=== PATIENT | male | born 1955 | race Caucasian/White ===

== ENCOUNTER 2017-02-22 12:07 | Observation (INO) | payer OTHER ==
--- NOTE | 2017-02-22 12:41 | CPEKG ---
Heart Rate: 44 RR Interval: 1364 P-R Interval: 188 QRSD Interval: 100 QT Interval: 440 QTC Interval: 377 P [place]: 53 QRS [place]: -6 T Wave [place]: 19 EKG Severity - OTHERWISE NORMAL ECG - EKG Impression: SINUS BRADYCARDIA Electronically Signed By: Madan Pozo 22-Feb-2017 13:42:35
--- NOTE | 2017-02-22 12:48 | EDPHY ---
H & P Stated Complaint: syncope at concert/fell inj l hip/hit head Time Seen by Provider: 02/22/17 12:47 HPI/ROS: CHIEF COMPLAINT: Syncope, mechanical fall, left hip pain HISTORY OF PRESENT ILLNESS: The patient presents to the ED after he experienced a syncopal episode at a running event earlier today. The patient fell landing on his left hip. He also struck his head sustaining a small abrasion over his right eye. The patient was supposedly noted to be hypotensive and bradycardic at the event. The patient's reports that he was vela and ashen during the event. The patient exercises with some frequency. He reportedly was not exercising very hard Clem[place] happened. He was brought to the emergency department for further evaluation. The patient denies any active chest pain or shortness of breath. He complains of moderate pain lateral to his left hip with movement. The patient reports he had a similar episode approximately 2 years ago. At that point time he was hospitalized and had a fairly unremarkable evaluation. He was on a beta-nura at that point time which was discontinued. The patient is currently taking lisinopril, hydrochlorothiazide and amlodipine. The patient denies any anticoagulant use. The patient denies any history of recent illness or melena. REVIEW OF SYSTEMS: A comprehensive 10 point review of systems is otherwise negative aside from elements mentioned in the history of present illness. Source: Patient - Personal History Current Tetanus/Diphtheria Vaccine: No - Medical/Surgical History Hx Asthma: No Hx Chronic Respiratory Disease: No Hx Diabetes: No Hx Cardiac Disease: No Hx Renal Disease: No Hx Cirrhosis: No Hx Alcoholism: No Hx HIV/AIDS: No Hx Splenectomy or Spleen Trauma: No Other PMH: HTN,tinnitus, tonsillectomy, - Social History Smoking Status: Never smoked - Physical Exam Exam: General Appearance: Alert, no distress Head: Normocephalic, small abrasion over right eyebrow, no significant hematoma Neck: No midline tenderness to palpation Eyes: Pupils equal and round no pallor or injection ENT, Mouth: Mucous membranes moist Respiratory: There are no retractions, lungs are clear to auscultation Cardiovascular: Regular rate and rhythm Gastrointestinal: Abdomen is soft and nontender, no masses, bowel sounds normal Neurological: A&O, normal motor function, normal sensory exam, normal cranial nerves Skin: Warm and dry, no rashes Musculoskeletal: Tenderness to palpation adjacent to left hip and down lateral aspect of left thigh Extremities: symmetrical, full range of motion Constitutional: Initial Vital Signs Temperature (C) 36.7 C 02/22/17 12:17 Heart Rate 64 02/22/17 12:17 Respiratory Rate 20 02/22/17 12:17 Blood Pressure 125/79 H 02/22/17 12:17 O2 Sat (%) 98 02/22/17 12:17 O2 Delivery Mode Room Air Allergies/Adverse Reactions: No Known Allergies Allergy (Verified 02/22/17 12:17) Home Medications: Medication Instructions Recorded Aspirin EC [Aspirin EC 81 mg (*)] 81 mg PO DAILY #0 tab 04/16/15 Atorvastatin Calcium [Lipitor 40 40 mg PO DAILY #30 tab 04/16/15 mg (*)] Lisinopril/Hctz 10/12.5 mg 2 ea PO DAILY #0 tab 04/16/15 [Zestoretic/Prinzide 10/12.5MG (*)] amLODIPine BESYLATE [Norvasc 5 mg 5 mg PO DAILY #30 tab 04/16/15 (*)] Medical Decision Making - Diagnostics EKG Interpretation: EKG: Complete interpretation has been separately recorded in the [facility] archive. Summary impression: Sinus bradycardia Imaging Results: Left hip x-ray: Small avulsion noted off the ischial rami. No evidence of hip or other pelvic fracture present. Images reviewed by myself and discussed with radiologist Dr. Ramesh. ED Course/Re-evaluation: The patient was placed on a telecom sales consultant. He did have transient bradycardia upon arrival which improved. His heart rate has maintained in the 70s. His blood pressure is currently 148/84. The patient does have some left hip pain. There is no evidence of an obvious fracture noted on his x-ray. The patient was monitored in the emergency department for 2 hours without any further arrhythmia. He did receive 2 L of normal saline. I reviewed the patient's past medical records. The patient had a negative CTA of the head and neck less than 2 years ago. The patient had a fairly extensive workup for dizziness and hypertension at that time. He is currently not on a beta-nura. I re-evaluated the patient at 2:30 p.m.. He is in no acute distress. The patient presents to the ED after an episode of syncope which resulted in fairly significant hypotension and according to his fairly impressive pallor, central cyanosis and diaphoresis. I do feel the patient should be admitted to the hospital for observation this evening. His initial troponin is normal. The patient has no evidence of ischemia on his EKG. Consultation is made with the hospitalist service for admission. 3:00 p.m.: I am informed by Radiology that they do see a small avulsion fracture off of his inferior ramus which certainly could be an explanation of the patient's pain. I did page Orthopedics and will request in-patient orthopedic consultation. Differential Diagnosis: Differential diagnosis considered includes vasovagal episode, dehydration, metabolic abnormality, arrhythmia, hip fracture, pelvic fracture - Data Points Laboratory Results: Laboratory Results 02/22/17 12:46 02/22/17 12:46 02/22/17 02/22/17 12:46 12:46 WBC 11.69 10^3/uL H 10^3/uL (3.80-9.50) RBC 4.56 10^6/uL 10^6/uL (4.40-6.38) Hgb 14.6 g/dL g/dL (13.7-17.5) Hct 42.3 % % (40.0-51.0) MCV 92.8 fL fL (81.5-99.8) MCH 32.0 pg pg (27.9-34.1) MCHC 34.5 g/dL g/dL (32.4-36.7) RDW 12.9 % % (11.5-15.2) Plt Count 203 10^3/uL 10^3/uL (150-400) MPV 11.8 fL H fL (8.7-11.7) Neut % (Auto) 85.8 % H % (39.3-74.2) Lymph % (Auto) 7.4 % L % (15.0-45.0) [place] % (Auto) 5.0 % % (4.5-13.0) Eos % (Auto) 1.0 % % (0.6-7.6) Baso % (Auto) 0.3 % % (0.3-1.7) Nucleat RBC Rel Count 0.0 % % (0.0-0.2) Absolute Neuts (auto) 10.03 10^3/uL H 10^3/uL (1.70-6.50) Absolute Lymphs (auto) 0.86 10^3/uL L 10^3/uL (1.00-3.00) Absolute Monos (auto) 0.59 10^3/uL 10^3/uL (0.30-0.80) Absolute Eos (auto) 0.12 10^3/uL 10^3/uL (0.03-0.40) Absolute Basos (auto) 0.03 10^3/uL 10^3/uL (0.02-0.10) Absolute Nucleated RBC 0.00 10^3/uL 10^3/uL (0-0.01) Immature Gran % 0.5 % % (0.0-1.1) Immature Gran # 0.06 10^3/uL 10^3/uL (0.00-0.10) Sodium 135 mEq/L mEq/L (134-144) Potassium 4.1 mEq/L mEq/L (3.5-5.2) Chloride 102 mEq/L mEq/L (97-110) Carbon Dioxide 22 mEq/l mEq/l (22-31) Anion Gap 11 mEq/L mEq/L (8-16) BUN 19 mg/dL mg/dL (7-23) Creatinine 1.0 mg/dL mg/dL (0.7-1.3) Estimated GFR > 60 Glucose 102 mg/dL H mg/dL (70-100) Calcium 9.6 mg/dL mg/dL (8.5-10.4) Troponin I < 0.012 ng/mL ng/mL (0-0.034) Medications Given: Discontinued Medications Sodium Chloride (Ns) 1,000 mls @ 0 mls/hr IV EDNOW ONE; Wide Open PRN Reason: Protocol Stop: 02/22/17 13:01 Last Admin: 02/22/17 13:16 Dose: 1,000 mls Ibuprofen (Motrin) 600 mg PO EDNOW ONE Stop: 02/22/17 13:09 Last Admin: 02/22/17 13:15 Dose: 600 mg Departure - Departure Disposition: [facility] Inpatient Acute Clinical Impression: Syncope, Bradycardia, Left hamstring injury Condition: Good Referrals: Iraj Hughes MD [Primary Care Provider] - As per Instructions
[2017-02-22] MEDS ORDERED: NS 1,000 ML IV ONE (13:00)
[2017-02-22] MEDS ORDERED: IBUPROFEN 600 MG TAB PO ONE (13:08)
[2017-02-22 13:24] LABS: % IMMATURE GRANULYOCYTES 0.5 % (0.0-1.1); ABSOLUTE IMMATURE GRANULOCYTES 0.06 10^3/uL (0.00-0.10); ADD DIFF? NO; ADD MORPH? NO; ADD SCAN? NO; ATYPICAL LYMPHOCYTE FLAG 0 (0-99); FRAGMENT RBC FLAG 0 (0-99); HEMATOCRIT 42.3 % (40.0-51.0); HEMOGLOBIN 14.6 g/dL (13.7-17.5); LEFT SHIFT FLG 0 (0-99); LIPEMIA HEMOLYSIS FLAG 90 (0-99); MEAN CELL HEMOGLOBIN CONCENTR. 34.5 g/dL (32.4-36.7); MEAN CELL VOLUME 92.8 fL (81.5-99.8); MEAN PLATELET VOLUME 11.8 fL (8.7-11.7); PLATELET CLUMPS FLAG 0 (0-99); PLATELET COUNT 203 10^3/uL (150-400); RED BLOOD CELL COUNT 4.56 10^6/uL (4.40-6.38); RED CELL DISTRIBUTION WIDTH 12.9 % (11.5-15.2)
[2017-02-22 13:31] LABS: ANION GAP 11 mEq/L (8-16); CALCIUM 9.6 mg/dL (8.5-10.4); CARBON DIOXIDE 22 mEq/l (22-31); CHLORIDE 102 mEq/L (97-110); GLOMERULAR FILTRATION RATE > 60; GLUCOSE 102 mg/dL (70-100); POTASSIUM 4.1 mEq/L (3.5-5.2); SODIUM 135 mEq/L (134-144)
[2017-02-22 13:42] LABS: TROPONIN I < 0.012 ng/mL (0-0.034)
[2017-02-22] MEDS ORDERED: PROMETHAZINE HCL 25 MG/ML INJ IVP PRN (16:03)
[2017-02-22] MEDS ORDERED: ONDANSETRON DISINTEGRATING 4 MG TAB PO PRN (16:03)
[2017-02-22] MEDS ORDERED: ONDANSETRON 4 MG/2 ML VIAL IVP PRN (16:03)
[2017-02-22] MEDS ORDERED: ACETAMINOPHEN 325 MG TAB PO PRN (16:03)
[2017-02-22] MEDS ORDERED: LORazepam 0.5 MG TAB PO PRN (16:03)
[2017-02-22] MEDS ORDERED: ZOLPIDEM TARTRATE 5 MG TAB PO PRN (16:03)
[2017-02-22] MEDS: oxyCODONE IR 5 MG TAB PO PRN (19:26)
--- NOTE | 2017-02-22 20:25 | GHP ---
[f rep st] HISTORY AND PHYSICAL DATE OF ADMISSION: 02/22/2017 CHIEF COMPLAINT: Syncope. HISTORY: This is a 61-year-old man with a past medical history that includes hypertension and prior syncopal events, who presents after several syncopal versus near syncopal episodes earlier in the d ay today. The patient notes that he was at a music event where he was helping to set up tarps. In order to do that, they were essentially running with the tarps across the field. He notes that 10 s econds into running, he experienced loss of consciousness, was out for about 10-15 seconds. He stat es there was really no prodrome of symptoms that he was about to faint and that prior to this happen ing, he had felt well. It was not a particularly hot day and it was early in the day so he had not had much to drink. He then got up to go to the medical tent and had 2 more episodes of near syncope and ultimately had to be taken by stretcher to the ambulance. It was noted in the medical tent mitchell t he had a heart rate in the 40s and his blood pressure was in the 90/60 range. He notes that he avitia s had syncopal episodes in the past, one of which he was admitted for and was thought to be secondar y to over medication for his blood pressure. At that hospitalization, he underwent a significant wo rkup including head and neck CTA, brain MRI and echocardiogram, and also was seen by Neurology. The se notes describe these episodes as dizzy episodes, though he describes them as syncopal events. He notes he had one other syncopal event when he was up in [place], but at that time, he was dehydrated. He also was complaining of significant pain in his left hamstring and notes that he fell. He feels as if he tore something back there and has been unable to fully extend his leg since the fall. The patient's notes that shortly after his syncopal event, he was ashen appearing. He was diaphor etic and his lips appeared purple. PAST MEDICAL HISTORY: 1. Hypertension. 2. Prior syncopal versus near syncopal episodes. FAMILY HISTORY: Father of a stroke in his 80s. He has 2 grandparents who of strokes as w ell in their 60s. SOCIAL HISTORY: Patient is here with his girlfriend. He describes himself as very active, [place] He is a nonsmoker and only drinks occasionally. He has 4 children . REVIEW OF SYSTEMS: A 10-point review of systems obtained and negative, except as per HPI. PHYSICAL EXAMINATION: VITAL SIGNS: BP 157/101, heart rate 75, respiratory rate 21, O2 sats 92% on room air. Temperature is 36.7. GENERAL APPEARANCE: This is a well-developed, well-nourished man. He is awake and alert. He is in no acute distress. EYES: Anicteric. HENT: Oropharynx clear. C ARDIOVASCULAR: Regular rate and rhythm. No murmurs, rubs, or gallops. PULMONARY: CTA bilaterally . Normal work of breathing. ABDOMEN: Soft, nontender. Positive bowel sounds. EXTREMITIES: No c lubbing, cyanosis, or edema. SKIN: Warm, dry well perfused. EXTREMITIES: The patient has signifi cant tenderness near the insertion site of his left hamstring with inability to fully extend his leg . SKIN: Warm, dry, well perfused. NEURO/PSYCH: Oriented appropriate, pleasant. CLINICAL DATA: EKG personally reviewed and interpreted shows sinus bradycardia, rate of 44. Otherw ise intervals appear normal. No ST-T changes. Hip x-ray, personally reviewed and interpreted showing findings suspicious for an avulsion-type frac ture along the lateral margin of the ischium. Lower extremity MRI shows hamstring avulsion with possible associated injury of the sciatic nerve. ASSESSMENT/PLAN: 1. This is a 61-year-old man with a past medical history of hypertension, presenting status post sy ncopal event with associated hamstring avulsion injury. 2. Syncope, most likely vasovagal episode; however, there are some concerning features including th at he reports no prodrome. He will be monitored on telemetry with serial EKGs and troponins. He wa s significantly bradycardic from the time of the episode until his arrival here in the ER but since has normalized. There were no noted signs of heart block, however. We will obtain an echocardiogra m. Will ask Cardiology to consult in the morning. Could be related to volume depletion and being o n a diuretic; however, his blood pressure has been relatively normal since arrival. 3. Hamstring avulsion injury. I will consult Orthopedics for further assistance and management. 4. Hypertension. Will hold his lisinopril/HCTZ for now and monitor his blood pressure. He does avitia ve concerns that perhaps his blood pressure has been intermittently low at home as well. I will con tinue his amlodipine. 5. Disposition: Observation status. Suspect he will need less than 48 hours stay for evaluation a nd management of above. 6. Patient is new to my care. Old records reviewed, summarized as per HPI and past medical history . Care plan reviewed with ER physician, including plans for workup of syncope. Further history obt ained from patient's girlfriend present at bedside. /[id number]/MODL
[2017-02-23] MEDS: oxyCODONE IR 5 MG TAB PO PRN (03:31)
[2017-02-23 05:57] VITALS: RESP 16
--- NOTE | 2017-02-23 08:16 | CPEKG ---
Heart Rate: 59 RR Interval: 1017 P-R Interval: 208 QRSD Interval: 98 QT Interval: 436 QTC Interval: 432 P [place]: 46 QRS [place]: -25 T Wave [place]: 6 EKG Severity - ABNORMAL ECG - EKG Impression: SINUS RHYTHM EKG Impression: BORDERLINE LEFT AXIS DEVIATION EKG Impression: CONSIDER ANTEROSEPTAL INFARCT Electronically Signed By: Jerry Redding 23-Feb-2017 10:21:25
[2017-02-23] MEDS ORDERED: ATORVASTATIN CALCIUM 40 MG TAB PO SCH (09:00)
[2017-02-23] MEDS ORDERED: amLODIPine BESYLATE 5 MG TAB PO SCH (09:00)
[2017-02-23] MEDS ORDERED: ASPIRIN EC 81 MG TAB PO SCH (09:00)
[2017-02-23 10:34] LABS: % IMMATURE GRANULYOCYTES 0.3 % (0.0-1.1); ABSOLUTE IMMATURE GRANULOCYTES 0.02 10^3/uL (0.00-0.10); ADD DIFF? NO; ADD MORPH? NO; ADD SCAN? NO; ATYPICAL LYMPHOCYTE FLAG 0 (0-99); FRAGMENT RBC FLAG 0 (0-99); HEMATOCRIT 39.8 % (40.0-51.0); HEMOGLOBIN 13.9 g/dL (13.7-17.5); LEFT SHIFT FLG 0 (0-99); LIPEMIA HEMOLYSIS FLAG 90 (0-99); MEAN CELL HEMOGLOBIN 32.2 pg (27.9-34.1); MEAN CELL HEMOGLOBIN CONCENTR. 34.9 g/dL (32.4-36.7); MEAN CELL VOLUME 92.1 fL (81.5-99.8); MEAN PLATELET VOLUME 11.7 fL (8.7-11.7); PLATELET CLUMPS FLAG 10 (0-99); PLATELET COUNT 198 10^3/uL (150-400); RED BLOOD CELL COUNT 4.32 10^6/uL (4.40-6.38)
[2017-02-23 10:43] LABS: ANION GAP 11 mEq/L (8-16); CALCIUM 8.8 mg/dL (8.5-10.4); CARBON DIOXIDE 22 mEq/l (22-31); CHLORIDE 107 mEq/L (97-110); CREATININE 0.8 mg/dL (0.7-1.3); GLOMERULAR FILTRATION RATE > 60; GLUCOSE 102 mg/dL (70-100); POTASSIUM 3.8 mEq/L (3.5-5.2); SODIUM 140 mEq/L (134-144)
[2017-02-23 11:33] VITALS: BP 119/71; PULSE 66; TEMP 97.3; O2SAT 91
--- NOTE | 2017-02-23 12:18 | GCON ---
[f rep st] CONSULTATION CARDIOLOGY CONSULTATION DATE OF CONSULTATION: 02/23/2017 INDICATION FOR CONSULTATION: Syncope. HISTORY OF PRESENT ILLNESS: The patient is a pleasant 61-year-old gentleman with a past medical history of hypertension and a prior history of syncope while skiing in [place] in September of 2014 coupled with an episode of profound dizziness in March of 2015 who presented to [facility] last evening after a syncopal episode. He was at a concert in [place] last evening and was sprinting across a field to obtain close-up seats for the concert when while in the middle of the sprint he suddenly lost consciousness without prodrome. His girlfriend came upon him and found him down. She described him as being pale and diaphoretic with blue lips and some blood on his face secondary to his traumatic fall. EMS arrived on scene and attempted to pick him up, at which point he collapsed and became syncopal once again. A third attempt to get him up resulted in, again, his inability to stand secondary to marked near syncope. He was seen at the medical tent at the concert where it was reported that he had a blood pressure of 90/60, and an initial heart rate in the medical tent in the 40s. Upon his arrival in the ER, he was noted to have transient bradycardia on arrival but has maintained a heart rate in the 70s and blood pressure of 148/ 84. The patient's symptoms have gradually improved. He states he did not feel well for several hours after his syncopal event. His fall has resulted in trauma with evidence of a small avulsion fracture off his left inferior ramus. The patient was admitted to the hospitalist service to [address] [place] [address]. On telemetry, he was found to have paroxysmal atrial fibrillation that occurred last evening at 5:14 and again occurred this morning at 7:26. He states he could appreciate fluttering in his chest at the time of these separate events. He has no previous history of atrial fibrillation. He has been cared for by Dr. Elia Mendez at [facility], primarily for hypertension. In reviewing his records, in March of 2015 he was admitted for a 2-3 day history of chronic dizziness. He underwent extensive workup including CTA of the head and neck demonstrating nonobstructive calcified plaque in his left carotid bulb. MRI of his brain demonstrated a small chronic old lacunar infarct. Currently, at the time of my exam, he is resting comfortably without complaint. He denies complaints of chest pain, chest pressure, shortness of breath or dyspnea. He has no complaints of PND, orthopnea, or lower extremity edema. He denies any history of exertional intolerance, or fatigue. He describes himself as physically active and mountain bikes 30 miles a week without cardiac complaint. At the time of my exam, his blood pressure is 92/73 with a heart rate of 58, in sinus rhythm. PAST MEDICAL HISTORY: 1. Hypertension. 2. History of syncope. 3. Nonobstructive left carotid bulb plaque on CTA in March 2015. MEDICATIONS ON ADMISSION: Include amlodipine 5 mg daily, lisinopril/ hydrochlorothiazide 20/25 mg once daily, atorvastatin 40 mg daily, and aspirin 81 mg daily. ALLERGIES: No allergies to medications. SOCIAL HISTORY: He is a nonsmoker. He rarely drinks alcohol. He exercises regularly. He has 4 children. FAMILY HISTORY: His father from a CVA in his 80s. His grandparents of strokes as well in their 60s. PHYSICAL EXAMINATION: VITAL SIGNS: Blood pressure 92/73, heart rate 58 in sinus rhythm, oxygen saturation 95% on room air, temperature 36.7. GENERAL: He is awake, alert, oriented, appropriate. No apparent distress. NECK: There is no evidence of JVP or carotid bruits. LUNGS: Clear to auscultation bilaterally. CARDIAC: S1, S2. Regular rate and rhythm. No murmurs, rubs, or gallops. PMI is not displaced. ABDOMEN: Soft, nontender, nondistended. There is no pulsatile mass or abdominal bruit. EXTREMITIES: There is no evidence of cyanosis, clubbing or edema. DATA: White blood cell count 6.35, hemoglobin of 13.9, hematocrit 39.8, platelet count 198. Sodium 140, potassium 3.8, chloride 107, bicarb 22, BUN 12 , creatinine 0.8, glucose 102. AST 28, ALT 40. Total cholesterol 134, LDL 54, triglycerides 66, HDL 67. TSH 1.2. Troponin less than 0.012 x 2. Telemetry: Sinus rhythm to sinus bradycardia. Two runs of paroxysmal atrial fibrillation that patient could appreciate with symptoms of palpitations. IMPRESSION: 1. Non prodromal syncope. 2. New onset paroxysmal atrial fibrillation. The patient is a pleasant 61-year-old gentleman with an episode of non prodromal syncope with a history of a syncopal event approximately 2-1/2 years ago that was preceded with symptoms of dizziness and lightheadedness. His story is consistent with vasovagal syncope with being found bradycardic and hypotensive and unable to stand without having further syncope during his initial event. He has been found to have runs of paroxysmal atrial fibrillation. In the setting of risk factors for heart disease including evidence of carotid disease and hypertension, would recommend workup including complete 2D echocardiogram and pharmacologic nuclear stress test. As an outpatient, I think he will require evaluation for obstructive sleep apnea based on his girlfriend's report that he does snore. He is in need of orthopedic surgery secondary to his left avulsion fracture. Would recommend his cardiac workup with echo and nuclear stress test be completed before undergoing orthopedic surgery. PLAN: 1. Continue outpatient medications. 2. Complete 2D echocardiogram. 3. Pharmacologic nuclear stress test. 4. We will continue to follow along with the patient's care. 5. As an outpatient, will require a formal sleep study and will consider implantable loop recorder. 45 minutes spent coordinating patient care. /[id number]/MODL MTDD
--- NOTE | 2017-02-23 19:26 | PDDCSUM ---
Discharge Summary Discharge Summary: DISCHARGE SUMMARY FOLLOW-UP ITEMS: Outpatient echo and stress test this Saturday, orthopedic consultation to follow DATE OF ADMISSION: 02/22/2017 DATE OF DISCHARGE: 02/23/2017 DISCHARGE DIAGNOSES: 1. Acute syncope 2. Paroxysmal atrial fibrillation 3. Left hamstring avulsion CONSULTATIONS: Cardiology, Orthopedics PROCEDURES / IMAGING: MRI of pelvis demonstrating left hamstring avulsion with approximately 8 mm tear CHIEF COMPLAINT: Acute syncope SUBJECTIVE: Patient is able to ambulate with touchdown weight-bearing at discharge PHYSICAL EXAM ON DISCHARGE: Systolic blood pressure 120, heart rate 60, afebrile overnight, satting well on room air, left lower extremity in the 45 degree angle flexed position, painful with extension, painful with 90 degree flexion, painful with internal and external rotation, less painful with abduction and abduction, tender to palpation in the insertion point near the ischium LABS ON DISCHARGE: Troponin negative, TSH normal HOSPITAL COURSE BY PROBLEM: 1. Acute syncope. Patient presented with multiple syncopal episodes without initial prodrome, which may be secondary to vasovagal events given his reported hypotension and bradycardia at the scene. That being said, the patient should have an echocardiogram performed given his onset of atrial fibrillation he should also have a stress test. He was seen in consultation by Cardiology they made these recommendations. Given that the patient has consumed caffeine on the morning of this discharge, is recommended that he have these tests performed in the outpatient setting. He did not experience any syncopal episodes during his hospitalization. 2. Paroxysmal atrial fibrillation. The patient experienced a short, self- limited run of atrial fibrillation on telemetry monitoring. It is unclear whether there is any relevance to this and whether it is related in any way to his syncopal episode. Appears to be asymptomatic when it occurred. Dr. Devin Pederson has recommended that the patient continue his aspirin 81 mg daily and at the present time we will avoid yumiko blocking agents given that his resting heart rate is between 50 and 70 and his atrial fibrillation was self-limited. As noted above, the patient will have an outpatient echo and stress test this week. 3. Hamstring avulsion. Acute, 8 mm tear left hamstring seen in consultation by Dr. Coreas, he has recommended conservative, nonsurgical management and protection of the affected area as either nonweightbearing or touchdown weight- bearing at most. He will be discharged with walker and crutches. Dr. Coreas has recommended that the patient follow up with [facility], either Dr. Bhakta or Dr. Carrillo for further instructions. DISCHARGE MEDICATIONS: Please see official discharge medication reconciliation sheet in chart oxycodone immediate release as needed, Karel S scheduled while on opiates, aspirin 81 mg daily DISCHARGE INSTRUCTIONS: Please follow up at [facility] for cardiac testing this Saturday, follow up with Orthopedics thereafter.
--- NOTE | 2017-02-24 07:55 | PDCONSULT ---
Emergency Response Technician Note: Orthopaedic Consult Note DOS: 02/23/2017 CC: Syncope and Left hip pain HPI: 61y M p/w Left posterior hip and thigh pain after syncope event at [employer] while running with a tarp to get his listening space at the concert. He denies thigh pain prior to the event. We were consulted by Dr. Chavarria regarding a hamstring avulsion found on imaging. He enjoys skiing and biking as his main sports and is concerned about returning to them after this injury. He has a prior history of syncopal events without a clear diagnosis. Cardiology has seen the patient and recommended some additional outpatient studies to assess potential afib or other etiologies. PMHx: prior syncopal episodes, HTN Meds: includes HTN meds All: NKDA FamHx: CVA SocHx: 4 children. Was planning trip to [place] in a couple weeks. ROS: 10 system review all within normal baseline for patient except for CV and MSK per HPI, and facial lacs from fall. PE: AxOx3, laying in bed with pillow under Left knee. dried small cut over right eye RLE: no pain with ROM. NVI LLE: Pain in lateral posterior thigh and buttock with hip flexion and internal rotation, hip flexion + knee extension. TTP at ischium and along biceps femoris. Minimal to no TTP along medial hamstrings all the way to insertion. SILT S/S/SP/DP/T. 2+ DP. 5/5 TA/GS. 4+/5 quad. 4/5 hamstring Imaging: Pelvis and hip films visually reviewed demonstrating possible avulsion fragment along lateral ischium. MRI shows that hamstrings partially avulsed, perhaps 50-75%, but inferior attachments Avulsion displacement ~8-10mm. A/P: 61y M h/o syncopal episodes of unclear etiology p/w new syncopal episode and Left hamstring partial avulsion - We discussed that the likely sequence of events was that he had a syncopal episode and then fell in an awkward position, avulsing his hamstring. He had no prodrome of hamstring issues and appears to be generally healthy from a musculoskeletal perspective, making spontaneous hamstring avulsion with straight ahead running seem less likely prior to the syncope. Of course, this is impossible to know 100% without witnesses. - He should be nonweightbearing or touchdown weightbearing to the Right lower extremity for now. I anticipate a course of ~4 weeks protected weightbearing and nonoperative treatment (as most hamstring injuries are). - We recommend decreased activities for now. Eventually, he'll engage with PT once he's had sufficient healing. - However, I recommended following up with one of my sports colleagues in my [facility] to have them confirm or adjust a nonoperative plan for his avulsion. - The patient had his questions answered for now - it was a pleasure seeing him today.
== END 2017-02-23 16:45 | disposition home or self-care (01) ==
LOC: F2W 16:20
PROVIDERS: ADMIT Internal Medicine; ATTEND Internal Medicine
DX: R55 Syncope and collapse (principal); I48.0 Paroxysmal atrial fibrillation; S76.312A Strain of muscle, fascia and tendon of the posterior muscle group at thigh level, left thigh, initial encounter; S00.91XA Abrasion of unspecified part of head, initial encounter; R00.1 Bradycardia, unspecified; I10 Essential (primary) hypertension; I77.9 Disorder of arteries and arterioles, unspecified; W19.XXXA Unspecified fall, initial encounter; Y93.02 Activity, running; Y92.830 Public park as the place of occurrence of the external cause; H93.19 Tinnitus, unspecified ear; Z79.82 Long term (current) use of aspirin; Z82.3 Family history of stroke
CPT/HCPCS: 73502; 73718; 93005; G0378

== ENCOUNTER 2017-03-22 05:54 | Day surgery (SDC) | payer OTHER ==
--- NOTE | 2017-03-21 09:42 | PDGENHP ---
History and Physical - Chief Complaint L leg pain - History of Present Illness 1. Acute Left proximal hamstring tear with 2.5cm retraction HISTORY OF PRESENT ILLNESS: Yahairais a 61 y.o.~~~active male~who I have had the pleasure to consult on today.~I have enjoyed meeting him. He~lives in [place]. ~Yahairais self employed and works for [employer]. ~Reza~is single; he~has 4~children. ~ Yahairaenjoys mountain biking, hiking, walking and skiing. Hermilo's left~hamstring~pain started on 22 of February,~2016~with marked~recalled trauma or injury, and with no~previous complaints.~He fell while running. ~Hermilo Carydoes not have~a known history of hip dysplasia. Presentation today is of~posterior left~hamstring pain. ~The hip does~wake him~ at night. Sitting can be uncomfortable~for him. Yhaairadoes~report suffering from lower back pain episodes. Hermilo is using crutches for walking and keeps his knee flexed whenever needed to get some relief from pain. ~He~has not~received sufficient symptomatic improvement. Yahairahas~utilized medication for pain management, including Percocet. Yahaira has used medication for 1 weeks. Yahairadenies issues with the right~hip. ~ Yahairaunderstands that he~has a hip and pelvis problem which should be researched and wishes to get a better understanding of his~hip status, followed by an establishment of a treatment strategy, hoping heRaeannwould be able to get back to his~well being active life. History: Past medical history: ~ Hypertension Relevant familial history: None which is relevant Past surgical history: Tonsillectomy Yahairadenies problematic issues with general anesthesia in the past. I have reviewed, verified and agree with the past medical, surgical, family and social history. Current Medications:~has a current medication list which includes the following prescription(s): amlodipine, atorvastatin, and lisinopril. ALLERGIES:~has No Known Allergies. Objective: Physical Examination: Yahairais 5~feet 9~inches tall and weighs~160~Lbs. Yahairais AAO x3; he~is well- nourished, in NAD. Skin is warm and dry. ~Breathing is non-labored. ~CV with RRR by pulse. Abdomen is soft, NTND. Currently, he~walks with a abnormal~gait(Acute injury and walks with crutches). He~presents~with no~signs of joint laxity.~Beightons Score: 0 ~ Lower spine examination is negative~for sciatic or femoral nerve irritation with negative~SLR &~femoral stretch tests. Strength, Sensation and pulses are normal - bilaterally Ankles and knees exams are normal~and no~mal-alignment is evident. Hip ROM (degrees): FL ER At 90~hip FL IR At 90~hip FL AB R 110 35 15 35 L Not tested Not tested Not tested Not tested Specific hip and pelvis tests: Quadrant DEISY Roll R Negative Negative Negative L Not tested Not tested Negative PRONE Hamstring Specific Exam: Left Hip Bruising in posteromedial thigh, proximal 1/3rd Palpable deformity at proximal insertion of ischial tuberosity on left compared to right Diffuse perispinal, lumbar, and SI joint TTP Hamstrings tests are positive~functional contraction and positive~tendinopathy the left hip. Imaging: Radiology studies which I~have personally reviewed, analyzed and measured are below: XR: AP of the hip and pelvis: Performed in a good~technique Coccyx to pubic symphysis distance 1.6~cm. 15~degrees caudal. [place]~Lines are preserved. No~Pathological signs are seen in the Symphysis Pubis. Marked~Pathological signs are seen at the Ischial~tuberosity(visible avulsion fragment).~ Specific measurements show: Sclerosis Sup. Lat. OA Cysts Joint Space-WBZ Joint Space-Medial R + ++ Negative 3.4~mm 5~mm L + ++ Negative 3.6~mm 4.4~mm X Table lateral: Anterior cam lesion is seen~on both hips. MRI shows ([facility] system): Acute Left proximal hamstring tear with 2.5cm retraction Impression and plan:~ Yahairais a 61 y.o.~active male~suffering from symptomatic left~hip pain due to Acute Left proximal hamstring tear with 2.5cm retraction causing significant disability to him~and altering~his~sport and life activities. Physical examination, imaging, and his~story correspond with the diagnosis mentioned above. I have explained the diagnosis and its significance to Yahairaand we have discussed the various possible treatment options and their implications with him. These include proceeding with conservative treatment while continuing to modify his~activities to avoid aggravating the hamstring further and repairing the hamstring surgically. We discussed the pros and cons and various implications of both options, in length. Hermilo~will review the info presented. Hermilo is interested moving forward with surgery and we will work on finding a spot for him. Hermilo~is happy with this plan. I wish~Hermilo~all the best, ~~ Dona Ferris MD History Information - Allergies/Home Medication List Allergies/Adverse Reactions: No Known Allergies Allergy (Verified 02/22/17 12:17) I have personally reviewed and updated: medical history - Social History Smoking Status: Never smoked
[2017-03-22] MEDS ORDERED: PREGABALIN 150 MG CAP PO ONE (06:03)
[2017-03-22] MEDS ORDERED: ceFAZolin 2 GM/DEXTROSE 100 ML IV ONE (06:03)
[2017-03-22] MEDS ORDERED: ACETAMINOPHEN 500 MG TAB PO ONE (06:03)
[2017-03-22] MEDS ORDERED: LIDOCAINE 1% 2 ML INJ ID PRN (06:14)
[2017-03-22] MEDS ORDERED: LR 1,000 ML IV ONE (06:14)
[2017-03-22] MEDS ORDERED: MIDAZOLAM 2 MG/2 ML VIAL IVP ONE (06:49)
--- NOTE | 2017-03-22 06:51 | PDANEPAE ---
ANE History of Present Illness 61 yo M w traumatic hamstring rupture, here for repair ANE Past Medical History - Cardiovascular History Hx Hypertension: Yes Hx Arrhythmias: No Hx Chest Pain: No Hx Coronary Artery / Peripheral Vascular Disease: No Hx CHF / Valvular Disease: No Hx Palpitations: No - Pulmonary History Hx COPD: No Hx Asthma/Reactive Airway Disease: No Hx Recent Upper Respiratory Infection: No Hx Oxygen in Use at Home: No Hx Sleep Apnea: No Sleep Apnea Screening Result - Last Documented: Negative - Neurologic History Hx Cerebrovascular Accident: No Hx Seizures: No Hx Dementia: No - Endocrine History Hx Diabetes: No - Renal History Hx Renal Disorders: No - Liver History Hx Hepatic Disorders: No - Neurological & Psychiatric Hx Hx Neurological and Psychiatric Disorders: No - Congenital Disorder History Hx Congenital Disorders: No - GI History Hx Gastrointestinal Disorders: No - Other Health History Other Health History: NEG - Chronic Pain History Chronic Pain: No - Surgical History Prior Surgeries: TONSILLECTOMY ANE Review of Systems - Exercise capacity METS (RN): 5 METS ANE Patient History - Allergies Allergies/Adverse Reactions: No Known Allergies Allergy (Verified 02/22/17 12:17) - Home Medications Home medications: home medication list seen and reviewed Home Medications: Amlodipine Besylate 03/21/17 [Last Taken 03/21/17] Lisinopril-Hctz 10-12.5 mg Tab 03/21/17 [Last Taken 03/15/17] - NPO status NPO Status: no food or drink >8 hours NPO Since - Liquids (Date): 03/21/17 NPO Since - Liquids (Time): 19:30 NPO Since - Solids (Date): 03/21/17 NPO Since - Solids (Time): 19:30 - Anes Hx Anes Hx: no prior problems - Smoking Hx Smoking Status: Never smoked - Alcohol Use Alcohol Use: Rarely - Family Anes Hx Family Anes Hx: none Family Hx Anesthesia Complications: NEG ANE Labs/Vital Signs - Vital Signs Blood Pressure: 143/95 Heart Rate: 63 Respiratory Rate: 16 O2 Sat (%): 99 Height: 175.26 cm Weight: 72.575 kg ANE Physical Exam - Airway Neck exam: FROM Mallampati Score: Class 2 Mouth exam: normal dental/mouth exam - Pulmonary Pulmonary: no respiratory distress, clear to auscultation - Cardiovascular Cardiovascular: regular rate and rhythym, no murmur, rub, or gallop - ASA Status ASA Status: II ANE Anesthesia Plan Anesthesia Plan: general endotracheal anesthesia
[2017-03-22] MEDS ORDERED: fentaNYL 100 MCG/2 ML INJ ONE (07:05)
[2017-03-22] MEDS ORDERED: ROCURONIUM 50 MG/5 ML VIAL ONE (07:05)
[2017-03-22] MEDS ORDERED: LIDOCAINE 2% 100 MG/5 ML SYR ONE (07:05)
[2017-03-22] MEDS ORDERED: PROPOFOL 200 MG/20 ML VIAL ONE ×2 (07:05)
[2017-03-22] MEDS ORDERED: BUPIVACAINE/EPI 0.5% 30 ML SDV ONE (07:15)
[2017-03-22] MEDS ORDERED: BUPIVACAINE 0.25% 30 ML SDV ONE (07:18)
[2017-03-22] MEDS ORDERED: ONDANSETRON 4 MG/2 ML VIAL ONE (08:11)
[2017-03-22] MEDS ORDERED: DEXAMETHASONE 4 MG/ML VIAL ONE (08:11)
[2017-03-22] MEDS ORDERED: HYDROmorphONE/DILAUDID 2 MG/ML INJ ONE (08:54)
[2017-03-22] MEDS ORDERED: SUGAMMADEX SODIUM 200 MG/2 ML VIAL IVP ONE (10:10)
[2017-03-22 11:24] VITALS: PULSE 61; RESP 13; TEMP 97.9
[2017-03-22] MEDS ORDERED: ONDANSETRON 4 MG/2 ML VIAL IVP PRN (11:51)
[2017-03-22] MEDS ORDERED: fentaNYL 100 MCG/2 ML INJ IVP PRN (11:51)
[2017-03-22] MEDS ORDERED: PROMETHAZINE HCL 25 MG/ML INJ IVP PRN (11:51)
[2017-03-22] MEDS ORDERED: OXYCODONE/APAP 5/325 TAB PO PRN (11:51)
[2017-03-22] MEDS ORDERED: NALOXONE HCL 0.4 MG/ML INJ IVP PRN (11:51)
[2017-03-22] MEDS ORDERED: HYDROmorphONE/DILAUDID 1 MG/ML SYR IVP PRN (11:51)
[2017-03-22 12:45] VITALS: BP 114/68; O2SAT 94
--- NOTE | 2017-03-22 13:34 | POSTANESTH ---
Post Anesthetic Evaluation Cardiovascular Status: Normal, Stable, Similar to Pre-Op Cond Respiratory Status: Normal, Stable, Similar to Pre-op Cond. Level of Consciousness/Mental Status: Can Participate in Eval, Alert and Oriented Pain Control: Adequate, Prn Tx Ordered Nausea/Vomiting Control: Adequate, Prn Tx Ordered Complications Possibly Related to Anesthesia: None Noted
== END 2017-03-22 12:46 | disposition home or self-care (01) ==
LOC: FSGY 05:54
PROVIDERS: ATTEND Orthopaedic Surgery Sports Medicine
PROC: 0KQR0ZZ Repair Left Upper Leg Muscle, Open Approach (ICD-10-PCS; principal; 2017-03-22 07:15)
DX: S76.312A Strain of muscle, fascia and tendon of the posterior muscle group at thigh level, left thigh, initial encounter (principal)
CPT/HCPCS: C1713; J0171; J0690; J1100; J1170; J2001; J2250; J2405; J2704; J3010

== ENCOUNTER → 2018-04-10 | Outpatient (CLI) | payer OTHER ==
[~2018-04-10] MED LIST: IOPAMIDOL (ISOVUE 370) 100 ML BTL IV ONE
== END ==
LOC: FIMAGING 09:04
DX: I51.7 Cardiomegaly (principal); I77.810 Thoracic aortic ectasia
CPT/HCPCS: Q9967

== ENCOUNTER 2018-06-02 14:12 | Day surgery (SDC) | payer OTHER ==
[2018-06-02] MEDS ORDERED: LR 1,000 ML IV SCH (15:00)
--- NOTE | 2018-06-02 15:28 | PDGENHP ---
History & Physical Chief Complaint: hx polyps History of Present Illness: 62 year old male with a history of polyps presents for surveilance colonoscopy. Pertinent Past, Social, Family History: PMHx: HTN. PSughx: tonsillectomy. Relevant Physical Exam: HEENT: anicteric. CV: RRR +s1s2. Lungs: CTAB. Abd: soft, Nt, + bs. No g/r/. Ext: No c/c/e Cardiorespiratory Assessment: ASA 2
[2018-06-02] MEDS ORDERED: NS 500 ML IV SCH (15:30)
--- NOTE | 2018-06-02 15:30 | PDANEPAE ---
ANE Past Medical History - Cardiovascular History Hx Hypertension: Yes Hx Arrhythmias: No Hx Chest Pain: No Hx Coronary Artery / Peripheral Vascular Disease: No Hx CHF / Valvular Disease: No Hx Palpitations: No Cardiovascular History Comment: intermittent afib - Pulmonary History Hx COPD: No Hx Asthma/Reactive Airway Disease: No Hx Recent Upper Respiratory Infection: No Hx Oxygen in Use at Home: No Hx Sleep Apnea: No Sleep Apnea Screening Result - Last Documented: Positive Pulmonary History Comment: BOBY positive, uses Cpap - Neurologic History Hx Cerebrovascular Accident: No Hx Seizures: No Hx Dementia: No - Endocrine History Hx Diabetes: No - Renal History Hx Renal Disorders: No - Liver History Hx Hepatic Disorders: No - Neurological & Psychiatric Hx Hx Neurological and Psychiatric Disorders: No - Cancer History Hx Cancer: No - Congenital Disorder History Hx Congenital Disorders: No - GI History Hx Gastrointestinal Disorders: No - Other Health History Other Health History: NEG - Chronic Pain History Chronic Pain: No - Surgical History Prior Surgeries: TONSILLECTOMY ANE Review of Systems Review of Systems: - Exercise capacity METS (RN): 6 METS ANE Patient History - Allergies Allergies/Adverse Reactions: No Known Allergies Allergy (Verified 02/22/17 12:17) - Home Medications Home Medications: Amlodipine Besylate 03/21/17 [Last Taken 06/02/18] Lisinopril-Hctz 10-12.5 mg Tab 03/21/17 [Last Taken 06/02/18] Apixaban [Eliquis] 05/22/18 [Last Taken 06/02/18] Atorvastatin Calcium [Lipitor 40 mg (*)] 05/22/18 [Last Taken Unknown] - NPO status NPO Since - Liquids (Date): 06/02/18 NPO Since - Liquids (Time): 10:00 NPO Since - Solids (Date): 06/01/18 NPO Since - Solids (Time): 19:00 - Smoking Hx Smoking Status: Never smoked - Family Anes Hx Family Hx Anesthesia Complications: NEG ANE Labs/Vital Signs - Vital Signs Blood Pressure: 113/81 Heart Rate: 65 Respiratory Rate: 20 O2 Sat (%): 97 Height: 176.53 cm Weight: 72.575 kg ANE Physical Exam - Airway Neck exam: FROM Mallampati Score: Class 2 Mouth exam: normal dental/mouth exam - Pulmonary Pulmonary: no respiratory distress - Cardiovascular Cardiovascular: regular rate and rhythym - ASA Status ASA Status: II ANE Anesthesia Plan Total IV Anesthesia: Yes
[2018-06-02] MEDS ORDERED: fentaNYL 100 MCG/2 ML INJ ONE (15:32)
[2018-06-02] MEDS ORDERED: LIDOCAINE 2% 100 MG/5 ML SYR ONE (15:33)
[2018-06-02] MEDS ORDERED: PROPOFOL/EMULSION 500 MG/50 ML BOTTLE IV ONE (15:33)
--- NOTE | 2018-06-02 16:26 | GIREPORT ---
[facility] Surgical Services - Endoscopy Department Patient Name: Hermilo Emerson Procedure Date: 06/02/2018 3:32 PM Patient Type: Outpatient Attending MD/ ER Physician: Blair Ferris MD Procedure: Colonoscopy Indications: High risk colon cancer surveillance: Personal history of colonic polyps Patient Profile: 62 year old male with a personal history of precancerous polyps present s for surveillance colonoscopy. Providers: Blair Ferris MD Medicines: Monitored Anesthesia Care Complications: No immediate complications. Estimated blood loss: Minimal. Description of Procedure: After obtaining informed consent, the scope was passed under direct vis ion. Throughout the procedure, the patient's blood pressure, pulse, and oxyg en saturations were monitored continuously. The Colonoscope with irrigatio n channel was introduced through the anus and advanced to the cecum, identified by appendiceal orifice and ileocecal valve. The colonoscopy was performed without difficulty. The patient tolerated the procedure well. The quality of the bowel preparation was good. Findings: The perianal and digital rectal examinations were normal. Pertinent negatives include no palpable rectal lesions. Many diverticula were found in the sigmoid colon. A 3 mm polyp was found in the sigmoid colon. The polyp was sessile. The polyp was removed with a cold biopsy forceps. Resection and retrieval w ere complete. Estimated Blood Loss: Estimated blood loss was minimal. Post Op Diagnosis: - Diverticulosis in the sigmoid colon. - One 3 mm polyp in the sigmoid colon, removed with a cold biopsy force ps. Resected and retrieved. Recommendation: - Discharge patient to home (with escort). - Resume previous diet. - Continue present medications. - Use fiber, for example Citrucel, Fibercon, Konsyl or Metamucil. - Repeat colonoscopy in 5 years for surveillance. - Thank you for allowing me to participate in the care of your patient. Attending Participation: I personally performed the entire procedure. Blair Ferris MD Blair Ferris MD 06/02/2018 4:26:33 PM This report has been signed electronicallyBlair Ferris MD Number of Addenda: 0 Note Initiated On: 06/02/2018 3:32 PM Total Procedure Duration Time 0 hours 27 minutes 23 seconds [email or web address]
[2018-06-02] MEDS ORDERED: ALBUTEROL 3 ML DEYVIAL IH PRN (16:33)
[2018-06-02] MEDS ORDERED: ONDANSETRON 4 MG/2 ML VIAL IVP PRN (16:33)
[2018-06-02] MEDS ORDERED: NALOXONE HCL 0.4 MG/ML INJ IVP PRN (16:33)
[2018-06-02] MEDS ORDERED: fentaNYL 100 MCG/2 ML INJ IVP PRN (16:33)
--- NOTE | 2018-06-02 16:34 | POSTANESTH ---
Post Anesthetic Evaluation Cardiovascular Status: Similar to Pre-Op Cond Respiratory Status: Similar to Pre-op Cond. Level of Consciousness/Mental Status: Mildly Sleepy, Arousable Pain Control: Adequate, Prn Tx Ordered Nausea/Vomiting Control: Adequate, Prn Tx Ordered Complications Possibly Related to Anesthesia: None Noted
[2018-06-02 17:20] VITALS: BP 116/79
== END 2018-06-02 17:39 | disposition home or self-care (01) ==
LOC: FSGY 14:12
PROVIDERS: ATTEND Internal Medicine Gastroenterology
PROC: 0DBN8ZX Excision of Sigmoid Colon, Via Natural or Artificial Opening Endoscopic, Diagnostic (ICD-10-PCS; principal; 2018-06-02 15:30)
DX: Z12.11 Encounter for screening for malignant neoplasm of colon (principal); K63.5 Polyp of colon; K57.30 Diverticulosis of large intestine without perforation or abscess without bleeding; I10 Essential (primary) hypertension; G47.33 Obstructive sleep apnea (adult) (pediatric); Z86.010 Personal history of colon polyps
CPT/HCPCS: J2001; J2704; J3010